=== PATIENT | male | born 1990 | race Caucasian/White ===

== ENCOUNTER 2018-10-23 16:22 | Emergency (ER) | payer MEDICAID, OTHER ==
[~2018-10-23] VITALS: Ht 175.3 cm; Wt 77.1 kg
[2018-10-23] MEDS ORDERED: ORPHENADRINE 60 MG/2 ML (NORFLEX) AMP IM ONE (16:45)
[2018-10-23] MEDS ORDERED: KETOROLAC 60 MG/2 ML VIAL IM ONE (16:45)
[2018-10-23] MEDS ORDERED: BUSPIRONE (16:49)
[2018-10-23] MEDS ORDERED: [UNRECOGNIZED DRUG - OTHER] (16:50)
[2018-10-23] MEDS ORDERED: SERTRALINE (16:50)
[2018-10-23] MEDS ORDERED: HYDROZINE (16:51)
[2018-10-23] MEDS ORDERED: OLANZAPINE (16:51)
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
--- NOTE | 2018-10-23 17:29 | Diagnostic Imaging Report ---
INDICATION: Left rib pain x1 year. PA chest and three views of left ribs do not show any displaced fractures. There are no osteolytic or osteoblastic lesions. Lungs are clear. There is no effusion or pneumothorax. IMPRESSION: Negative chest and left ribs. Dictated by: Dictated on workstation # [id number]
[2018-10-23 17:40] VITALS: BP 120/72
== END 2018-10-23 17:40 | disposition home or self-care (01) ==
LOC: ER 16:24
DX: M54.9 Dorsalgia, unspecified (principal); R07.81 Pleurodynia; F41.9 Anxiety disorder, unspecified; F31.9 Bipolar disorder, unspecified
CPT/HCPCS: 71101; 96372

== ENCOUNTER 2019-01-02 11:00 | Emergency (ER) | payer MEDICAID ==
[~2019-01-02] VITALS: Ht 170.2 cm; Wt 63.5 kg
[~2019-01-02 11:00] MED LIST: BUSPIRONE; FAMO-119 PO; HYDROZINE; OLANZAPINE; PRD20T PO; SERTRALINE; [UNRECOGNIZED DRUG - OTHER]
[2019-01-02] MEDS ORDERED: LORazepam 0.5 MG (ATIVAN) TABLET PO STA (11:09)
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
[2019-01-02] MEDS ORDERED: OLANZapine 5 MG ODT (ZyPREXA ZYDIS) PO ONE ×2 (11:15→11:30)
--- NOTE | 2019-01-02 11:34 | NUR ---
PT TO RADIOLOGY PER W/C W/ TECH X2
--- NOTE | 2019-01-02 11:48 | NUR ---
LUNCH PROVIDED FOR PT
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
--- NOTE | 2019-01-02 11:59 | Diagnostic Imaging Report ---
PROCEDURE: CT head without contrast. TECHNIQUE: Multiple contiguous axial images were obtained through the brain without the use of intravenous contrast. Auto Exposure Controls were utilized during the CT exam to meet ALARA standards for radiation dose reduction. INDICATION: Altered mental status. COMPARISON: 12/23/2017. FINDINGS: No hyperdense hemorrhage or space-occupying mass. No hydrocephalus or midline shift. Pedroza-white matter differentiation is preserved. No acute skull fracture. Orbits are normal in appearance. Paranasal sinuses and mastoid air cells are clear. IMPRESSION: No acute intracranial process by CT. Dictated by: Dictated on workstation # [id number]
--- NOTE | 2019-01-02 12:09 | NUR ---
PT RESTING QUIETLY, LIGHTS OFF IN ROOM
--- NOTE | 2019-01-02 12:46 | NUR ---
PT RESTING QUIETLY, NO DISTRESS OR DISCOMFORT NOTED
[2019-01-02 13:29] VITALS: BP 109/64
--- NOTE | 2019-01-02 13:29 | NUR ---
PT CONTINUES TO REST QUIETLY, NO DISTRESS OR DISCOMFORT NOTED.
[2019-01-02 14:55] VITALS: BP 104/65
--- NOTE | 2019-01-02 14:55 | NUR ---
PT CONTINUES TO REST W/O COMPLAINT. WARM BLANKET TO PT. NO DISTRESS OR DISCOMFORT NOTED
--- NOTE | 2019-01-02 16:35 | NUR ---
NO CHANGES AT THIS TIME. PT RESTING QUIETLY
[2019-01-02 16:37] VITALS: BP 119/62
[2019-01-02 17:45] VITALS: BP 109/60
--- NOTE | 2019-01-02 18:26 | NUR ---
MUPIRICIN DISPENSED TO PT BY MEJIA HAMILTON. INSTRUCTIONS DISCUSSED W/ PT ALSO BY MEJIA.
[2019-01-02] MEDS ORDERED: MUPIROCIN 2% OINT 22 GM (BACTROBAN) TUBE TOP SCH (21:00)
== END 2019-01-02 17:45 | disposition home or self-care (01) ==
LOC: EDUNIT# 11:00 → ER 11:04
DX: F15.90 Other stimulant use, unspecified, uncomplicated (principal); F22 Delusional disorders; F41.9 Anxiety disorder, unspecified; F31.9 Bipolar disorder, unspecified; Z77.22 Contact with and (suspected) exposure to environmental tobacco smoke (acute) (chronic); Z79.52 Long term (current) use of systemic steroids; Z59.0 Homelessness
CPT/HCPCS: 70450; 99283

== ENCOUNTER 2019-01-31 05:53 | Emergency (ER) | payer SELFPAY ==
[~2019-01-31] VITALS: Ht 177.8 cm; Wt 63.5 kg
[2019-01-31] MEDS ORDERED: IBUPROFEN 800 MG (MOTRIN) TAB PO ONE (06:15)
--- NOTE | 2019-01-31 07:03 | NUR ---
Report given to TUCKER Weaver to assume care of pt @ this time.
--- NOTE | 2019-01-31 07:10 | Diagnostic Imaging Report ---
INDICATION: Shortness of breath COMPARISON: 10/23/2018 FINDINGS: Frontal and lateral views the chest demonstrate clear lungs bilaterally. The heart size is normal. There is no pneumothorax. Osseous structures are normal. IMPRESSION: No acute findings. Normal chest. Dictated by: Dictated on workstation # [id number]
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
[2019-01-31 07:50] VITALS: BP 124/82
== END 2019-01-31 07:50 | disposition home or self-care (01) ==
LOC: EDUNIT# 05:53 → ER 05:55
DX: S20.211A Contusion of right front wall of thorax, initial encounter (principal); F41.9 Anxiety disorder, unspecified; F31.9 Bipolar disorder, unspecified; F17.210 Nicotine dependence, cigarettes, uncomplicated; Z79.52 Long term (current) use of systemic steroids; Y08.89XA Assault by other specified means, initial encounter
CPT/HCPCS: 71046

== ENCOUNTER 2020-06-21 18:52 | Inpatient (IN) | payer OTHER ==
[~2020-06-21] VITALS: Ht 175.2 cm; Wt 78.3 kg
[2020-06-21] MEDS ORDERED: morphine INJ 10 MG/ML 1ML (SYR OR VIAL) IVP STA ×2 (19:23→20:04)
[2020-06-21] MEDS ORDERED: HOLD METFORMIN - RECEIVED CONTRAST 20 ML VIAL IV SCH (19:30)
[2020-06-21] MEDS ORDERED: NS 100 ML (IVPB) BAG IV ONE (19:30)
[2020-06-21] MEDS ORDERED: CATHETER FLUSH 10 ML SYR IV PRN (19:30)
[2020-06-21] MEDS ORDERED: ONDANSETRON 4 MG/2 ML (SDV) Z0FRAN IVP ONE (19:30)
[2020-06-21] MEDS ORDERED: IOHEXOL 350 MG/ML 100 ML (OMNIPAQUE 350) VIAL IV ONE (19:30)
[2020-06-21] MEDS ORDERED: NS IV 1000 ML 1,000 ML IV SCH (19:30)
[2020-06-21 19:44] LABS: HEMOGLOBIN 13.7 G/DL (13.3-17.7); MEAN CORPUSCULAR HEMOGLOBIN 31 PG (25-34); WHITE BLOOD COUNT 14.4 10^3/uL (4.3-11.0)
[2020-06-21 19:45] LABS: BASOPHILS % (AUTO) 0 % (0-10); EOSINOPHILS % (AUTO) 0 % (0-10); HEMATOCRIT 40 % (40-54); LYMPHOCYTES % (AUTO) 13 % (12-44); MEAN CORPUSCULAR HGB CONC 35 G/DL (32-36); MEAN CORPUSCULAR VOLUME 90 FL (80-99); MEAN PLATELET VOLUME 9.9 FL (7.4-10.4); MONOCYTES % (AUTO) 9 % (0-12); NEUTROPHILS % (AUTO) 77 % (42-75); PLATELET COUNT 206 10^3/uL (130-400)
[2020-06-21 19:46] LABS: BASOPHILS # (AUTO) 0.1 10^3/uL (0.0-0.1); EOSINOPHILS # (AUTO) 0.1 10^3/uL (0.0-0.3); LYMPHOCYTES # (AUTO) 1.8 X 10^3 (1.0-4.0); MONOCYTES # (AUTO) 1.3 X 10^3 (0.0-1.0); NEUTROPHILS # (AUTO) 11.1 X 10^3 (1.8-7.8)
[2020-06-21 20:01] LABS: BUN/CREATININE RATIO 10; CARBON DIOXIDE 26 MMOL/L (21-32); CHLORIDE 97 MMOL/L (98-107); CREATININE SERUM 0.81 MG/DL (0.60-1.30); GFR ESTIMATED > 60; POTASSIUM 4.1 MMOL/L (3.6-5.0); SODIUM 135 MMOL/L (135-145)
[2020-06-21 20:02] LABS: ALANINE AMINOTRANSFERASE 34 U/L (0-55); ALBUMIN 4.1 GM/DL (3.2-4.5); ALKALINE PHOSPHATASE 121 U/L (40-136); BAND NEUTROPHILS 4 %; BILIRUBIN,TOTAL 0.7 MG/DL (0.1-1.0); CALCIUM 9.2 MG/DL (8.5-10.1); GLUCOSE 115 MG/DL (70-105); NEUTROPHILS % (MANUAL) 81 %; TOTAL PROTEIN 6.9 GM/DL (6.4-8.2)
[2020-06-21 20:03] LABS: BASOPHILS % (MANUAL) 0 %; EOSINOPHILS % (MANUAL) 2 %; LYMPHOCYTES % (MANUAL) 8 %; MONOCYTES % (MANUAL) 4 %; MYELOCYTES % 1 %
--- NOTE | 2020-06-21 20:12 | Diagnostic Imaging Report ---
PROCEDURE: CT pelvis with contrast. TECHNIQUE: Oral and intravenous contrast were administered with pelvic CT performed. Auto Exposure Controls were utilized during the CT exam to meet ALARA standards for radiation dose reduction. DATE: June 21, 2020. INDICATION: 29-year-old male, perirectal abscess for 4 days. COMPARISON: None. FINDINGS: There is a focal area of abnormal low-attenuation with at least a mild to moderately defined wall measuring 3.9 x 2.0 cm in axial extent and 4.5 cm in craniocaudal extent with adjacent inflammatory stranding. This is compatible with a perineal/perirectal abscess. The visualized portions of the intestinal tract are not distended. There is no identified free air in the pelvis. There is no additional identified drainable fluid collection. There is no free pelvic fluid. Urinary bladder is unremarkable in appearance. There is no identified abnormally enlarged lymph node in the pelvis meeting size criteria for adenopathy. There is no identified acute bony abnormality. IMPRESSION: 1. Findings compatible with abscess measuring 3.9 x 2.0 x 4.5 cm in size in the perineal/ perirectal region. Dictated by: Dictated on workstation # [id number]
--- NOTE | 2020-06-21 20:13 | ED Integumentary General ---
General Chief Complaint: Skin/Wound Problems Stated Complaint: ABCESS TO RT BUTTOCK Nursing Triage Note: Patient states that he noticed the spot about 4 days ago. Patient states that he has a hard area that is painful on the lower right buttock. Patient states that it is throbbing. Patient denies any drainage but does state that he is swollen into his perineum. Source: patient Exam Limitations: no limitations History of Present Illness Date Seen by Provider: Jun 21, 2020 Time Seen by Provider: 19:00 Initial Comments Patient is 29 YO male inmate who presents a R buttock abscess for the past 4 days. No fever, chills, n/v, or sweats. No abdominal pain, rectal pain or purulent drainage from rectum. No prior abscess. Timing/Duration: week Severity: moderate Location: none Allergies and Home Medications Allergies Coded Allergies: No Known Drug Allergies (Unverified , 10/23/18) Home Medications Famotidine 20 Mg Tablet, 20 MG PO BID Prescribed by: VANDANA HERNANDEZ on 08/01/172224 Prednisone 20 Mg Tab, 40 MG PO DAILY Prescribed by: VANDANA HERNANDEZ on 08/01/172224 Patient Home Medication List Home Medication List Reviewed: Yes Review of Systems Review of Systems Constitutional: see HPI EENTM: see HPI Respiratory: see HPI Cardiovascular: see HPI Gastrointestinal: see HPI Genitourinary: see HPI Musculoskeletal: see HPI Skin: see HPI Psychiatric/Neurological: See HPI Endocrine: See HPI Hematologic/Lymphatic: See HPI Past Bolevzj-Cxjoqm-Qljwor Hx Patient Social History Alcohol Use: Denies Use 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) Drug of Choice: MARIJUANA Smoking Status: Current Everyday Smoker Type Used: Cigarettes 2nd Hand Smoke Exposure: No Recent Foreign Travel: No Contact w/Someone Who Travel: No Recent Infectious Disease Expo: No Recent Hopitalizations: No Physical Abuse: No Sexual Abuse: No Mistreated: No Fear: No Immunizations Up To Date Tetanus Booster (TDap): Unknown Seasonal Allergies Seasonal Allergies: No Past Medical History Surgeries: No Respiratory: No Cardiac: No Neurological: No Reproductive Disorders: No Genitourinary: No Gastrointestinal: No Musculoskeletal: No Endocrine: No HEENT: No Cancer: No Psychosocial: Yes Depression Integumentary: No Blood Disorders: No Family Medical History COPD Physical Exam Vital Signs Vital Signs - First Documented 06/21/20 18:57 Temp 37.4 Pulse 90 Resp 18 B/P (MAP) 127/67 (87) Pulse Ox 98 O2 Delivery Room Air Capillary Refill : Less Than 3 Seconds General Appearance: no apparent distress HEENT: pharynx normal Cardiovascular: regular rate, rhythm Respiratory: lungs clear Gastrointestinal: non tender, soft Back: normal inspection Extremities: non-tender, normal inspection Skin: other (3 cm perirectal abscess with overlying cellulitis, no induration or drainage) Procedures/Interventions Suture Size: 4-0 Progress/Results/Core Measures Results/Orders Lab Results Laboratory Tests Test 06/21/20 19:31 Range/Units White Blood Count 14.4 H 4.3-11.0 10^3/uL Red Blood Count 4.41 4.35-5.85 10^6/uL Hemoglobin 13.7 13.3-17.7 G/DL Hematocrit 40 40-54 % Mean Corpuscular Volume 90 80-99 FL Mean Corpuscular Hemoglobin 31 25-34 PG Mean Corpuscular Hemoglobin Concent 35 32-36 G/DL Red Cell Distribution Width 11.9 10.0-14.5 % Platelet Count 206 130-400 10^3/uL Mean Platelet Volume 9.9 7.4-10.4 FL Immature Granulocyte % (Auto) 1 % Neutrophils (%) (Auto) 77 H 42-75 % Lymphocytes (%) (Auto) 13 12-44 % Monocytes (%) (Auto) 9 0-12 % Eosinophils (%) (Auto) 0 0-10 % Basophils (%) (Auto) 0 0-10 % Neutrophils # (Auto) 11.1 H 1.8-7.8 X 10^3 Lymphocytes # (Auto) 1.8 1.0-4.0 X 10^3 Monocytes # (Auto) 1.3 H 0.0-1.0 X 10^3 Eosinophils # (Auto) 0.1 0.0-0.3 10^3/uL Basophils # (Auto) 0.1 0.0-0.1 10^3/uL Immature Granulocyte # (Auto) 0.1 0.0-0.1 10^3/uL Neutrophils % (Manual) 81 % Lymphocytes % (Manual) 8 % Monocytes % (Manual) 4 % Eosinophils % (Manual) 2 % Basophils % (Manual) 0 % Myelocytes % 1 % Band Neutrophils 4 % Sodium Level 135 135-145 MMOL/L Potassium Level 4.1 3.6-5.0 MMOL/L Chloride Level 97 L 98-107 MMOL/L Carbon Dioxide Level 26 21-32 MMOL/L Anion Gap 12 5-14 MMOL/L Blood Urea Nitrogen 8 7-18 MG/DL Creatinine 0.81 0.60-1.30 MG/DL Estimat Glomerular Filtration Rate > 60 BUN/Creatinine Ratio 10 Glucose Level 115 H 70-105 MG/DL Lactic Acid Level 1.24 0.50-2.00 MMOL/L Calcium Level 9.2 8.5-10.1 MG/DL Corrected Calcium 9.1 8.5-10.1 MG/DL Total Bilirubin 0.7 0.1-1.0 MG/DL Aspartate Amino Transf (AST/SGOT) 21 5-34 U/L Alanine Aminotransferase (ALT/SGPT) 34 0-55 U/L Alkaline Phosphatase 121 40-136 U/L C-Reactive Protein 5.36 H <0.50 MG/DL Total Protein 6.9 6.4-8.2 GM/DL Albumin 4.1 3.2-4.5 GM/DL My Orders Orders - EDIE DEE DO Cbc With Automated Diff (06/21/20 19:23) Comprehensive Metabolic Panel (06/21/20 19:23) Crp Fs (06/21/20 19:23) Blood Culture (06/21/20 19:23) Morphine Injection (Morphine Injection (06/21/20 19:23) Ondansetron Injection (Zofran Injectio (06/21/20 19:30) Lactic Acid Analyzer (06/21/20 19:23) Ns Iv 1000 Ml (Sodium Chloride 0.9%) (06/21/20 19:30) Ct Pelvis W (06/21/20 19:23) Iohexol Injection (Omnipaque 350 Mg/Ml 1 (06/21/20 19:30) Received Contrast (Hold Metformin- Contr (06/21/20 19:30) Sodium Chloride Flush (Catheter Flush Sy (06/21/20 19:30) Ns (Ivpb) (Sodium Chloride 0.9% Ivpb Bag (06/21/20 19:30) Blood Culture (06/21/20 19:31) Manual Differential (06/21/20 19:31) Ed Iv/Invasive Line Start (06/21/20 20:00) Morphine Injection (Morphine Injection (06/21/20 20:04) Medications Given in ED Current Medications Medications Dose Ordered Sig/Isreal Route Start Time Stop Time Status Last Admin Dose Admin Ondansetron HCl 4 mg ONCE ONCE IVP 06/21/20 19:30 06/21/20 19:31 DC 06/21/20 19:53 4 MG Vital Signs/I&O 06/21/20 18:57 Temp 37.4 Pulse 90 Resp 18 B/P (MAP) 127/67 (87) Pulse Ox 98 O2 Delivery Room Air Blood Pressure Mean: 87 Departure Communication (Admissions) CT = pelvis: 3 x 4 x 2 cm perirectal abscess Perirectal abscess with overlying cellulitis will require incision and drainage by general surgeon in the operating room. Patient given IV fluids and pain medication. Dr. Vargas excepts to [facility]. Impression Primary Impression: Perirectal abscess Disposition: ADMITTED INPATIENT Condition: Stable Admissions Decision to Admit Reason: Admit from ER (General) Decision to Admit/Date: Jun 21, 2020 Time/Decision to Admit Time: 20:00 (Dr. Vargas) Transfer Method of Transfer: EMS Departure-Patient Inst. Referrals: [facility] (PCP/Family) Primary Care Physician EDIE DEE DO Jun 21, 2020 20:13
[2020-06-21] MEDS ORDERED: PIPERACILLIN SODIUM/TAZOBACTAM 4.5 GM in NS (IVPB) 100 ML IV ONE (21:00)
[2020-06-21 22:40] VITALS: BP 118/68
--- NOTE | 2020-06-21 22:40 | NUR ---
SHRUTHI PAYALBENJAMIN admitted to room 413-1, with an admitting diagnosis of NEGAR-RECTAL ABSCESS, on 06/21/20 from [facility] via [facility], accompanied by [facility]. SHRUTHI FERNANDEZ introduced to surroundings, call light, bed controls, phone, TV, temperature control, lights, meal times, smoking policy, visitor policy, side rail policy, bathrooms and showers. Patient Rights given to patient in the handbook. SHRUTHI FERNANDEZ verbalizes understanding that [facility] is not responsible for the loss or damage to any personal effects or valuables that are kept in the patients possession during their hospitalization.
[2020-06-21 22:49] VITALS: BP 103/64
[2020-06-21 22:50] VITALS: BP 103/64
[2020-06-21] MEDS ORDERED: ONDANSETRON 4 MG/2 ML (SDV) Z0FRAN IVP PRN (23:15)
[2020-06-21] MEDS: D5 1/2 NS 1000 ML IV SOLUTION 1,000 ML IV SCH (23:28)
[2020-06-21 23:52] VITALS: BP 103/64
[2020-06-22] VITALS (13 sets, daily range): BP systolic 86–106; BP diastolic 37–62
[2020-06-22] MEDS ORDERED: RT-ALBUTEROL SULF 2.5 MG/3 ML PRE-MIX VIAL INH PRN
[2020-06-22] MEDS: morphine INJ 4 MG/ML 1 ML (VIAL/SYRINGE) IVP PRN ×3 (01:45→20:53)
[2020-06-22] MEDS ORDERED: PIPERACILLIN/TAZO 4.5 GM VIAL (ZOSYN) IV ONE (03:02)
[2020-06-22] MEDS ORDERED: NS (IVPB) 100 ML ONE (03:02)
[2020-06-22] MEDS: PIPERACILLIN/TAZO 4.5 GM/NS 100 ML IV SCH ×6 (03:20→20:52)
--- NOTE | 2020-06-22 06:09 | NUR ---
DR. TONEY NOTIFIED OF CONSULT.
[2020-06-22] MEDS: D5 1/2 NS 1000 ML IV SOLUTION 1,000 ML IV SCH ×3 (06:15→20:53)
[2020-06-22] MEDS ORDERED: LACTATED RINGERS 1,000 ML IV ONE (08:10)
[2020-06-22] MEDS ORDERED: LACTATED RINGERS 1,000 ML IV SCH (08:15)
--- NOTE | 2020-06-22 08:18 | NUR ---
BP 86/37, DR COULTER NOTIFIED, LR FLUID BOLUS TIMES ONE LITER ORDERED
--- NOTE | 2020-06-22 09:15 | NUR ---
SPOKE WITH THE PT TO COMPLETE THE MED REC PT DENIES TAKING ANY PRESCRIPTION OR OTC MEDS A DEPUTY FROM [facility] WAS HERE WITH THE PT AND WAS NOT SURE WHAT PHARMACY THE RESIDENTIAL USES. I CALLED TAYLOR THE NURSE AT THE FACILITY AND WAS TOLD THEY PREFER TO GET A PAPER PRESCRIPTION SINCE THEY HAVE SOME MEDICATIONS ALREADY THERE OR IF THEY NEED SOMETHING ELSE THEY USE A PHARMACY DELIVERY SERVICE
[2020-06-22] MEDS ORDERED: KETOROLAC 15 MG/ML VIAL IVP ONE (09:45)
--- NOTE | 2020-06-22 10:13 | History & Physical-Hospitalist ---
History of Present Illness HPI/Chief Complaint Pt is a 29yoCM with no known PMH who presented to the ER from the [facility] due to a perirectal abscess. he reports the he developed this abscess roughly 4 days ago. He has not had a fever at the long term but developed one here. His biggest complaint is pain. He has no drainage from the site. He states that he's unable to sit due to the pain. Source: patient Date Seen 06/22/20 Time Seen by a Provider: 10:08 Attending Physician Karolina Vargas MD PCP Center/[facility] [place] Referring Physician Date of Admission Jun 21, 2020 at 22:36 Home Medications & Allergies Home Medications Reviewed patient Home Medication Reconciliation performed by pharmacy medication reconciliations boiler technician and/or nursing. Patients Allergies have been reviewed. 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) Drug of Choice: MARIJUANA Smoking Status: Current Everyday Smoker Type Used: Cigarettes 2nd Hand Smoke Exposure: No Recent Foreign Travel: No Contact w/other who traveled: No Recent Hopitalizations: No Recent Infectious Disease Expo: No Immunizations Up To Date Tetanus Booster (TDap): Unknown Seasonal Allergies Seasonal Allergies: No Past Medical History Reproductive: No Psychosocial: Depression History of Blood Disorders: No Family History Reviewed Nursing Family Hx FH: COPD (chronic obstructive pulmonary disease) 19 MOTHER COPD Review of Systems Constitutional: fever, malaise EENTM: no symptoms reported Respiratory: No cough, No short of breath Cardiovascular: No chest pain, No palpitations Gastrointestinal: see HPI; No abdominal pain, No nausea, No vomiting Genitourinary: no symptoms reported Musculoskeletal: no symptoms reported Skin: see HPI Psychiatric/Neurological: No Symptoms Reported Physical Exam Physical Exam Vital Signs Vital Signs - First Documented 06/21/20 06/21/20 06/22/20 18:57 23:52 11:58 Temp 37.4 Pulse 90 Resp 18 B/P (MAP) 127/67 (87) Pulse Ox 98 O2 Delivery Room Air O2 Flow Rate 10 FiO2 21 Capillary Refill : Less Than 3 Seconds Height, Weight, BMI Height: 5'10.00" Weight: 140lbs. oz. 63.755197fw; 23.78 BMI Method:Estimated General Appearance: No Apparent Distress, WD/WN HEENT: PERRL/EOMI, Moist Mucous Membranes; No Scleral Icterus (L), No Scleral Icterus (R) Neck: Normal Inspection, Supple Respiratory: Lungs Clear, No Accessory Muscle Use, No Respiratory Distress Cardiovascular: Regular Rate, Rhythm, No Murmur Gastrointestinal: Normal Bowel Sounds, Non Tender, Soft Rectal: Other (~3cm abscess apparent on right inner buttock) Extremity: Normal Capillary Refill, No Calf Tenderness, No Pedal Edema, Other (handcuffed to bed) Neurologic/Psychiatric: Alert, Oriented x3, Normal Mood/Affect Skin: Tattoos/Piercings Results Results/Procedures Labs Laboratory Tests 06/21/20 19:31 Patient resulted labs reviewed. Imaging: Reviewed Imaging Report [facility] [place] [place] NAME: SHRUTHI FERNANDEZ [facility] REC#: [id number] PT STATUS: REG ER : 1990 PHYSICIAN: EDIE DEE DO ADMIT DATE: 06/21/20/ER FS Signed Date of Exam:06/21/20 CT PELVIS W PROCEDURE: CT pelvis with contrast. TECHNIQUE: Oral and intravenous contrast were administered with pelvic CT performed. Auto Exposure Controls were utilized during the CT exam to meet ALARA standards for radiation dose reduction. DATE: June 21, 2020. INDICATION: 29-year-old male, perirectal abscess for 4 days. COMPARISON: None. FINDINGS: There is a focal area of abnormal low-attenuation with at least a mild to moderately defined wall measuring 3.9 x 2.0 cm in axial extent and 4.5 cm in craniocaudal extent with adjacent inflammatory stranding. This is compatible with a perineal/perirectal abscess. The visualized portions of the intestinal tract are not distended. There is no identified free air in the pelvis. There is no additional identified drainable fluid collection. There is no free pelvic fluid. Urinary bladder is unremarkable in appearance. There is no identified abnormally enlarged lymph node in the pelvis meeting size criteria for adenopathy. There is no identified acute bony abnormality. IMPRESSION: 1. Findings compatible with abscess measuring 3.9 x 2.0 x 4.5 cm in size in the perineal/ perirectal region. Dictated by: Dictated on workstation # [id number] Dict: 06/21/202001 Trans: 06/21/202138 [facility] [id number] Interpreted by: SHEMAR GREEN MD Electronically signed by: SHEMAR GREEN MD 06/21/202138 Assessment/Plan Admission Diagnosis Sepsis Perirectal abscess Admission Status: Inpatient Order (span 2 midnights) Reason for Inpatient Admission: see below Assessment and Plan Sepsis Perirectal abscess leukocytosis with fever and perirectal abscess- present on admission Continue on IV abx Surgery consulted, appreciate assistance Plan for OR today for I&D- await cultures Will need to be in the hospital likely through the weekend for IV abx Continue pain management. Diagnosis/Problems Diagnosis/Problems (1) Sepsis Status: Acute Qualifiers: Sepsis type: sepsis due to unspecified organism Sepsis acute organ dysfu nction status: without acute organ dysfunction Qualified Codes: A41.9 - Sepsis, unspecified organism (2) Sandra-rectal abscess Status: Acute (3) Inmate in correctional facility Clinical Quality Measures DVT/VTE Risk/Contraindication: Risk Factor Score Per Nursin RFS Level Per Nursing on Admit: 2=Moderate LILIAM COULTER MD Jun 22, 2020 10:13
--- NOTE | 2020-06-22 10:23 | Consultation - Surgery ---
History of Present Illness History of Present Illness Patient Consulted On(destini/time) 06/22/20 10:16 Time Seen by Provider: 09:41 History of Present Illness Surgery asked to consult regarding sandra-rectal abscess. HPI per ED: Patient states that he noticed the spot about 4 days ago. Patient states that he has a hard area that is painful on the lower right buttock. Patient states that it is throbbing. Patient denies any drainage but does state that he is swollen into his perineum. Patient is 29 YO male inmate who presents a R buttock abscess for the past 4 days. No fever, chills, n/v, or sweats. No abdominal pain, rectal pain or purulent drainage from rectum. No prior abscess. When I saw him this am he describes pain as 6 out of 10, nothing makes it better and sitting makes pain worse. Denies any trauma to the area. 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) Drug of Choice: MARIJUANA Smoking Status: Current Everyday Smoker Type Used: Cigarettes 2nd Hand Smoke Exposure: No Recent Foreign Travel: No Contact w/Someone Who Travel: No Recent Infectious Disease Expo: No Recent Hopitalizations: No Immunizations Up To Date Tetanus Booster (TDap): Unknown Seasonal Allergies Seasonal Allergies: No Surgeries History of Surgeries: No Respiratory History of Respiratory Disorde: No Cardiovascular History of Cardiac Disorders: No Neurological History of Neurological Disord: No Reproductive System Hx Reproductive Disorders: No Genitourinary History of Genitourinary Disor: No Gastrointestinal History of Gastrointestinal Di: No Musculoskeletal History of Musculoskeletal Dis: No Endocrine History of Endocrine Disorders: No HEENT History of HEENT Disorders: No Cancer History of Cancer: No Psychosocial History of Psychiatric Problem: Yes Behavioral Health Disorders: Depression Integumentary History of Skin or Integumenta: No Blood Transfusions History of Blood Disorders: No Family Medical History Significant Family History: COPD Family Medial History: FH: COPD (chronic obstructive pulmonary disease) 19 MOTHER Review of Systems-General Constitutional: chills, diaphoresis, malaise, weakness EENTM: No blurred vision, No double vision, No mouth pain, No mouth swelling, No epistaxis Respiratory: No cough, No dyspnea on exertion, No hemoptysis, No short of breath Cardiovascular: No chest pain, No palpitations Gastrointestinal: No abdominal pain, No nausea, No vomiting Genitourinary: No dysuria, No frequency, No hematuria Musculoskeletal: No joint pain, No joint swelling Skin: No change in color, No change in hair/nails Psychiatric/Neurological: Denies Anxiety, Denies Depressed, Denies Seizure, Denies Tremors Other pt denies any hx of abnormal bleeding or bruising Physical Exam-General Problems Physical Exam Vital Signs Vital Signs - First Documented 06/21/20 06/21/20 18:57 23:52 Temp 37.4 Pulse 90 Resp 18 B/P (MAP) 127/67 (87) Pulse Ox 98 O2 Delivery Room Air FiO2 21 Capillary Refill : Less Than 3 Seconds General Appearance: WD/WN, no apparent distress Eyes: Bilateral Eye PERRL, Bilateral Eye EOMI HEENT: pharynx normal; No scleral icterus (R), No scleral icterus (L) Neck: non-tender, supple Respiratory: chest non-tender, lungs clear, normal breath sounds, no respiratory distress, no accessory muscle use Cardiovascular: regular rate, rhythm, no murmur Gastrointestinal: normal bowel sounds, non tender, soft Rectal: other (large area of erythema, very tender right sandra-rectal area, measuring appx 8x 15 cm) Back: no CVA tenderness, no vertebral tenderness Extremities: non-tender, normal inspection, no pedal edema, no calf tenderness, normal capillary refill Neurologic/Psychiatric: toe trimmer II-XII nml as tested, no motor/sensory deficits, alert, normal mood/affect, oriented x 3 Skin: normal color, warm/dry Lymphatic: no adenopathy (neck, axilla), inguinal node tender (R) Data Review Labs Laboratory Tests 06/21/20 19:31: White Blood Count 14.4H, Red Blood Count 4.41, Hemoglobin 13.7, Hematocrit 40, Mean Corpuscular Volume 90, Mean Corpuscular Hemoglobin 31, Mean Corpuscular Hemoglobin Concent 35, Red Cell Distribution Width 11.9, Platelet Count 206, Mean Platelet Volume 9.9, Immature Granulocyte % (Auto) 1, Neutrophils (%) (Auto) 77H, Lymphocytes (%) (Auto) 13, Monocytes (%) (Auto) 9, Eosinophils (%) (Auto) 0, Basophils (%) (Auto) 0, Neutrophils # (Auto) 11.1H, Lymphocytes # (Auto) 1.8, Monocytes # (Auto) 1.3H, Eosinophils # (Auto) 0.1, Basophils # (Auto) 0.1, Immature Granulocyte # (Auto) 0.1, Neutrophils % (Manual) 81, Lymphocytes % (Manual) 8, Monocytes % (Manual) 4, Eosinophils % (Manual) 2, Basophils % (Manual) 0, Myelocytes % 1, Band Neutrophils 4, Sodium Level 135, Potassium Level 4.1, Chloride Level 97L, Carbon Dioxide Level 26, Anion Gap 12, Blood Urea Nitrogen 8, Creatinine 0.81, Estimat Glomerular Filtration Rate > 60, BUN/Creatinine Ratio 10, Glucose Level 115H, Lactic Acid Level 1.24, Calcium Level 9.2, Corrected Calcium 9.1, Total Bilirubin 0.7, Aspartate Amino Transf (AST/SGOT) 21, Alanine Aminotransferase (ALT/SGPT) 34, Alkaline Phosphatase 121, C-Reactive Protein 5.36H, Total Protein 6.9, Albumin 4.1 Assessment/Plan Assessment/Plan Assessment/Plan Sandra-rectal Abscess Plan is IV fluids, IV ABX, NPO and to OR for Incision and Drainage with possible debridement and packing. Will get consent and alert OR. Discussed risks and complications with pt; not limited to pain, bleeding, infection, scar. All questions answered to pt's satisfaction. Clinical Quality Measures DVT/VTE Risk/Contraindication: Risk Factor Score Per Nursin RFS Level Per Nursing on Admit: 2=Moderate BRII POLK DO Jun 22, 2020 10:23
[2020-06-22] MEDS ORDERED: LIDOCAINE PF 2% 5 ML (XYLOCAINE) VIAL ONE (10:54)
[2020-06-22] MEDS ORDERED: fentaNYL INJECTION 100 MCG/2 ML AMP ONE (10:54)
[2020-06-22] MEDS ORDERED: MIDAZOLAM 2 MG/2 ML (VERSED) VIAL ONE (10:54)
[2020-06-22] MEDS ORDERED: SEVOFLURANE (ULTANE) 15 ML INHAL SOLN ONE (10:54)
[2020-06-22] MEDS ORDERED: ONDANSETRON 4 MG/2 ML (SDV) Z0FRAN ONE (10:54)
[2020-06-22] MEDS ORDERED: proPOfol 200 MG/20 ML (DIPRIVAN) VIAL IV ONE (10:54)
[2020-06-22] MEDS ORDERED: BUP/EPI 0.25% 1:200,000 (MARCAINE) 30 ML VIAL ONE (10:59)
--- NOTE | 2020-06-22 11:59 | Progress Note-Post Operative ---
Post-Operative Progess Note Surgeon (s)/Follow Up Specialist (s) Surgeon BRII POLK DO Follow Up Specialist: none Pre-Operative Diagnosis Sandra-rectal abscess Post-Operative Diagnosis same Procedure & Operative Findings Date of Procedure 06/22/20 Procedure Performed/Findings I&D with debridement and packing Anesthesia Type LMA Estimated Blood Loss Estimated blood loss (mL): minimal Specimens/Packing Specimens Removed abscess culture BRII POLK DO Jun 22, 2020 11:59
[2020-06-22] MEDS ORDERED: morphine INJ 10 MG/ML 1ML (SYR OR VIAL) IVP ONE (12:15)
[2020-06-22] MEDS ORDERED: ONDANSETRON 4 MG/2 ML (SDV) Z0FRAN IVP PRN (12:15)
[2020-06-22] MEDS ORDERED: morphine INJ 10 MG/ML 1ML (SYR OR VIAL) ONE (12:25)
--- NOTE | 2020-06-22 12:28 | Anesthesia-General Post-Op ---
General Patient Condition Mental Status/LOC: Same as Preop Cardiovascular: Satisfactory Nausea/Vomiting: Absent Respiratory: Satisfactory Pain: Controlled Complications: Absent Post Op Complications Complications None Follow Up Care/Instructions Patient Instructions None needed. Anesthesia/Patient Condition Patient Condition Patient is doing well, no complaints, stable vital signs, no apparent adverse anesthesia problems. ADRIANA MORENO DO Jun 22, 2020 12:28
--- NOTE | 2020-06-22 13:00 | NUR ---
RETURNED FROM SURGERY, REPORT FROM GUANAKITO CEBALLOS, PATIENT ALERT, DRESSING INTACT TO ABSCESS. IV SITE WITHOUT REDNESS OR SWELLING, CALL LIGHT WITHIN REACH. SECURITY AT BEDSIDE.
--- NOTE | 2020-06-22 13:07 | CONSULTATION REPORT ---
DATE OF SERVICE: ATTENDING PHYSICIAN: Dr. Vargas. HISTORY OF PRESENT ILLNESS: The patient is a 29-year-old male, who presented to the Emergency Department from [facility]. He reports that about four days ago, he noticed a spot of the right lower buttock and stated this was hard and painful. He reports that this was throbbing, but denies any drainage. He reports that over the course days, this has become gradually worse with increasing pain as well as swelling. He denied any drainage as well as no fever or chills. He also denies any nausea or vomiting. He presented to the Emergency Department where he was found to have a white blood cell count of 14.[address] a CT of the pelvis, which did show a 3 x 4 x 2 cm perirectal abscess with overlying cellulitis. PAST MEDICAL HISTORY: History of drug abuse. PAST SURGICAL HISTORY: None. ALLERGIES: No known drug allergies. MEDICATIONS: None. SOCIAL HISTORY: Positive for smoke for 15 years. History of meth use as well as marijuana. Rare for alcohol. FAMILY HISTORY: Noncontributory. VITAL SIGNS: Temperature 38.7 degrees Celsius, pulse 91, respirations 16, blood pressure 97/55, pulse ox 94% on room air. REVIEW OF SYSTEMS: A well-nourished male in no acute distress. He is not experiencing any shortness of breath or difficulty breathing. No chest pain, palpitations or diaphoresis. No nausea, vomiting or abdominal pain. No diarrhea or constipation. No red blood per rectum. No dark tarry stools. He did have a slightly elevated temperature this morning. He does report pain and swelling of the right medial buttocks. All other review of systems negative. PHYSICAL EXAMINATION: CHEST: Clear. Good breath sounds bilaterally. HEART: Regular, no murmurs. EXTREMITIES: No lower extremity edema. Negative Homans sign. HEENT: No scleral icterus. NECK: No cervical lymphadenopathy. ABDOMEN: Soft, nontender, nondistended. SKIN: There is an area of cellulitis with redness and erythema of the right medial buttocks, which is firm and tender to palpation. This does extend down towards the perineum. There is no induration or active drainage noted. NEUROLOGIC: Awake, alert and oriented x3. ASSESSMENT AND PLAN: A 29-year-old male with a perirectal abscess with overlying cellulitis. At this time, we will admit him and give him IV fluids as well as pain and nausea medication and IV antibiotics. We will have him remain n.p.o. and he will need to undergo an incision and drainage in the operating room on this admission. Job ID: [id number] DocumentID: [id number] Dictated Date: 06/22/2020 09:47:05 Auto Service Dispatcher Date: 06/22/2020 13:06:38 Dictated By: KIMMY CHENG APRN
--- NOTE | 2020-06-22 14:35 | NUR ---
Pt is listed as [facility] but has not been active. Last Waxer provided prayer and blessing.
--- NOTE | 2020-06-22 15:38 | NUR ---
CM/SS visited with patient for discharge planning. Plan: Patient will return to [facility]. CM/SS introduced name and role at hospital. Will follow up with patient on Thursday.
--- NOTE | 2020-06-22 18:06 | OPERATIVE REPORT ---
DATE OF SERVICE: PREOPERATIVE DIAGNOSIS: Perirectal abscess. POSTOPERATIVE DIAGNOSIS: Perirectal abscess. PROCEDURE: Incision and drainage with debridement and packing of perirectal abscess. SURGEON: Eric Chou DO HEEL FINISHER: None. ANESTHESIA: LMA. SPECIMEN: Abscess culture. BLOOD LOSS: Minimal. FLUIDS: Per anesthesia. POSTOPERATIVE CONDITION: Stable. INDICATION FOR PROCEDURE: The patient is a 29-year-old male who has a perirectal abscess, right buttock, needed to get this drained. FINDINGS: The patient had a right perirectal abscess with about 20 mL of abscess in this area cultured and sent to pathology. PROCEDURE NOTE: After informed consent was obtained, the patient was brought to the operating room, placed on the operating table in right lateral decubitus position. He was sterilely prepped and draped in normal fashion. Local lidocaine was used to infiltrate over this erythematous area, had already had a small hole with some purulent drainage. We cultured this and sent to pathology. I then used a #11 blade to make a stab incision and opened this area, measured approximately 3.5 to 4 cm long incision, immediately got out about 20 mL of purulent fluid, then broke up any loculations. This did not extend towards the rectum, did extend a little further laterally on the buttock cheek. Debrided with a 4x4. At this point, I then copiously irrigated with normal saline. Hemostasis obtained using Bovie electrocautery and elected to pack with half inch iodoform packing, packed 1/2 of the bottle. Area was cleaned and dried, then placed a dressing. The patient tolerated the procedure and transferred to recovery room in stable condition. Sponge, instrument and needle count correct at the end of the case. Job ID: [id number] DocumentID: [id number] Dictated Date: 06/22/2020 11:58:43 Stretcher Leveler Operator Date: 06/22/2020 18:06:14 Dictated By: ERIC CHOU DO [facility]
[2020-06-22] MEDS ORDERED: ANTACID SUSP 30 ML UDC (MYLANTA) PO PRN (20:45)
[2020-06-22] MEDS ORDERED: MILK OF MAGNESIA 400 MG/5 ML 30 ML UDC PO PRN (20:45)
[2020-06-22] MEDS ORDERED: BENZONATATE 100 MG (TESSALON) CAPSULE PO PRN (20:45)
[2020-06-22] MEDS ORDERED: MELATONIN 3 MG TABLET PO PRN (20:45)
[2020-06-23] MEDS: morphine INJ 4 MG/ML 1 ML (VIAL/SYRINGE) IVP PRN ×2 (03:06→10:01)
[2020-06-23] MEDS: D5 1/2 NS 1000 ML IV SOLUTION 1,000 ML IV SCH ×4 (03:06→22:20)
[2020-06-23] MEDS: PIPERACILLIN/TAZO 4.5 GM/NS 100 ML IV SCH ×2 (03:06)
[2020-06-23 03:08] VITALS: BP 99/53
[2020-06-23 07:38] VITALS: BP_SYST 94; BP_DIAS 45; BP_DIAS 75
[2020-06-23] MEDS: TRIM/SULFAMETH 160/800 (SEPTRA DS) TAB PO SCH ×2 (08:11→18:05)
[2020-06-23] MEDS: BACITRACIN OINTMENT 28 GM TUBE TOP SCH ×2 (08:27→20:02)
[2020-06-23] MEDS: HYDROcodone/APAP 10 MG/325 MG (LORTAB) TAB PO PRN ×4 (08:51→22:19)
--- NOTE | 2020-06-23 10:00 | NUR ---
DRESSING CHANGED TO RIGHT PERINEAL ABBESS. MOD. AMT REDDISH DRAINAGE NOTED. FLUSHED WITH SALINE THEN PACKED (APPROX. 3 CM DEEP) WITH NU-GAUZE THEN 4X4'S AND ABD APPLIED TO AREA. NO REDNESS AT SITE, SL. FIRMNESS AROUND EDGES OF WOUND.
--- NOTE | 2020-06-23 11:10 | Progress Note - Surgery ---
Subjective Time Seen by a Provider: 10:01 Subjective/Events-last exam Pt seen and examined, main complaint is of pain. Tolerating diet. Review of Systems Pulmonary: No Dyspnea, No Cough Cardiovascular: No: Chest Pain, Palpitations Gastrointestinal: No: Nausea, Vomiting, Abdominal Pain Focused Exam Lactate Level 06/21/20 19:31: Lactic Acid Level 1.24 Objective Exam Vital Signs Date Time Temp Pulse Resp B/P (MAP) Pulse Ox O2 Delivery O2 Flow Rate FiO2 06/23/20 08:00 95 Room Air 06/23/20 07:38 36.6 56 16 94/75 (81) 96 Room Air 06/23/20 03:08 36.2 70 16 99/53 (68) 96 Room Air 06/22/20 23:40 37.0 68 19 98/52 (67) 97 Room Air 06/22/20 20:17 36.6 72 18 106/56 (73) 96 Room Air 06/22/20 20:00 Room Air 06/22/20 19:24 Room Air 06/22/20 16:15 36.4 74 20 96/45 (62) 95 Room Air 06/22/20 13:00 Room Air 06/22/20 13:00 36.2 77 16 98/54 (69) 94 Room Air 06/22/20 12:48 36.5 12 103/57 (72) 95 Room Air 06/22/20 12:45 Room Air 06/22/20 12:38 16 105/62 (76) 97 OxyMask 10 06/22/20 12:30 OxyMask 10 06/22/20 12:28 18 101/58 (72) 100 OxyMask 10 06/22/20 12:18 17 90/60 (70) 100 OxyMask 10 06/22/20 12:15 OxyMask 10 06/22/20 12:08 18 97/48 (64) 96 OxyMask 10 06/22/20 11:58 36.8 16 95/48 (64) 97 OxyMask 10 06/22/20 11:58 OxyMask 10 I & O 06/23/20 07:00 Intake Total 6060 ml Balance 6060 ml Capillary Refill : Less Than 3 Seconds General Appearance: No Apparent Distress, WD/WN HEENT: No Scleral Icterus (L), No Scleral Icterus (R) Respiratory: Lungs Clear, Normal Breath Sounds, No Accessory Muscle Use, No Respiratory Distress Cardiovascular: Regular Rate, Rhythm, No Murmur Gastrointestinal: other (gracie-rectal area no erythema, minimal serosanguinous drainage) Extremity: Other (handcuffed to bed) Skin: Tattoos/Piercings Results Lab Microbiology 06/22/20 Gram Stain - Final, Resulted 06/22/20 Anaerobic Culture, Resulted Pending 06/22/20 Surgical Culture - Preliminary, Resulted Staphylococcus aureus 06/22/20 Fungal Culture 1, Resulted Pending 06/22/20 MRSA Screen - Final, Complete 06/21/20 Blood Culture - Preliminary, Resulted No growth Assessment/Plan Assessment/Plan Assessment/Plan S/P I&D of Gracie-rectal Abscess Cultures have come back MRSA; ABX changed and switched to PO. Plan change packing today and tomorrow and can send back to skilled nursing because nurse will be in on Thursday. Continue pain control. Clinical Quality Measures DVT/VTE Risk/Contraindication: Risk Factor Score Per Nursin RFS Level Per Nursing on Admit: 2=Moderate BRII POLK DO Jun 23, 2020 11:10
[2020-06-23 11:12] VITALS: BP 94/42
--- NOTE | 2020-06-23 11:59 | Progress Note - Hospitalist ---
Subjective HPI/CC On Admission Date Seen by Provider: Jun 23, 2020 Time Seen by Provider: 11:57 Pt is a 29yoCM with no known PMH who [facility]. Subjective/Events-last exam Pt reports feeling better today. Pain improving. Focused Exam Lactate Level 06/21/20 19:31: Lactic Acid Level 1.24 Objective Exam Vital Signs Vital Signs Date Time Temp Pulse Resp B/P (MAP) Pulse Ox O2 Delivery O2 Flow Rate FiO2 06/23/20 11:12 36.4 62 16 94/42 (59) 96 Room Air 06/22/20 12:38 10 06/21/20 23:52 21 Capillary Refill : Less Than 3 Seconds General Appearance: No Apparent Distress, WD/WN Respiratory: Lungs Clear, No Respiratory Distress Cardiovascular: Regular Rate, Rhythm, No Murmur Neurologic/Psychiatric: Alert, Oriented x3 Results/Procedures Lab Patient resulted labs reviewed. Imaging: Reviewed Imaging Report Assessment/Plan Assessment and Plan Assess & Plan/Chief Complaint Sepsis Perirectal abscess POD #1 I&D Wound culture growing MRSA Switch to Bactrim Surgery consulted, appreciate assistance Continue pain management Will likely be able to DC tomorrow after wound packed Diagnosis/Problems Diagnosis/Problems (1) Sepsis Status: Acute Qualifiers: Sepsis type: sepsis due to unspecified organism Sepsis acute organ dysfunction status: without acute organ dysfunction Qualified Codes: A41.9 - Sepsis, unspecified organism (2) Sandra-rectal abscess Status: Acute Clinical Quality Measures DVT/VTE Risk/Contraindication: Risk Factor Score Per Nursin RFS Level Per Nursing on Admit: 2=Moderate LILIAM COULTER MD Jun 23, 2020 11:59
[2020-06-23] MEDS: DOCUSATE SODIUM 100 MG (COLACE) CAP PO SCH ×3 (12:00→20:02)
[2020-06-23] MEDS ORDERED: DOCUSATE SODIUM 100 MG (COLACE) CAP PO ONE (13:54)
[2020-06-23 15:51] VITALS: BP 95/51
[2020-06-23 19:27] VITALS: BP 102/54
--- NOTE | 2020-06-23 19:59 | Discharge Inst-Simple/Standard ---
Discharge Inst-Standard Patient Instructions/Follow Up Plan of Care/Instructions/FU: Please continue to take your medications as written. Please follow up with your primary care doctor to follow up this hospital stay. Activity as Tolerated: Yes Discharge Diet: No Restrictions Return to The Hospital For: Fever, worsening redness or pain, chest pain, shortness of breath, confusion, if you feel you are getting worse. LILIAM COULTER MD Jun 23, 2020 19:59
[2020-06-23 23:06] VITALS: BP 103/55
[2020-06-24 03:57] VITALS: BP 96/57
[2020-06-24] MEDS: D5 1/2 NS 1000 ML IV SOLUTION 1,000 ML IV SCH (05:04)
[2020-06-24] MEDS: HYDROcodone/APAP 10 MG/325 MG (LORTAB) TAB PO PRN ×2 (05:04→09:01)
[2020-06-24 07:47] VITALS: BP 107/66
[2020-06-24] MEDS ORDERED: morphine INJ 4 MG/ML 1 ML (VIAL/SYRINGE) IVP SCH (09:00)
[2020-06-24] MEDS: TRIM/SULFAMETH 160/800 (SEPTRA DS) TAB PO SCH (09:01)
[2020-06-24] MEDS: DOCUSATE SODIUM 100 MG (COLACE) CAP PO SCH (09:43)
[2020-06-24] MEDS: BACITRACIN OINTMENT 28 GM TUBE TOP SCH (09:44)
--- NOTE | 2020-06-24 10:08 | Progress Note - Surgery ---
Subjective Time Seen by a Provider: 09:08 Subjective/Events-last exam Pt seen and examined, no new complaints and states pain is mostly controlled. Review of Systems General: No Chills, No Night Sweats Pulmonary: No Dyspnea, No Cough Cardiovascular: No: Chest Pain, Palpitations Focused Exam Lactate Level 06/21/20 19:31: Lactic Acid Level 1.24 Objective Exam Vital Signs Date Time Temp Pulse Resp B/P (MAP) Pulse Ox O2 Delivery O2 Flow Rate FiO2 06/24/20 07:47 36.6 54 16 107/66 (80) 97 Room Air 06/24/20 03:57 36.9 61 16 96/57 (70) 98 Room Air 06/23/20 23:06 36.6 62 16 103/55 (71) 98 Room Air 06/23/20 20:00 Room Air 06/23/20 19:27 36.5 56 17 102/54 (70) 97 Room Air 06/23/20 15:51 36.6 75 17 95/51 (66) 96 Room Air 06/23/20 11:12 36.4 62 16 94/42 (59) 96 Room Air l I & O 06/24/20 07:00 Intake Total 5490 ml Balance 5490 ml Capillary Refill : Less Than 3 Seconds General Appearance: No Apparent Distress, WD/WN HEENT: Moist Mucous Membranes; No Scleral Icterus (L), No Scleral Icterus (R) Respiratory: Lungs Clear, Normal Breath Sounds, No Accessory Muscle Use, No Respiratory Distress Cardiovascular: Regular Rate, Rhythm, No Murmur Gastrointestinal: other (gracie-rectal area no erythema, minimal serosanguinous drainage) Extremity: Other (handcuffed to bed) Skin: Tattoos/Piercings Results Lab Microbiology 06/22/20 Gram Stain - Final, Resulted 06/22/20 Anaerobic Culture, Resulted Pending 06/22/20 Surgical Culture - Preliminary, Resulted Staphylococcus aureus 06/22/20 Fungal Culture 1, Resulted Pending 06/22/20 MRSA Screen - Final, Complete 06/21/20 Blood Culture - Preliminary, Resulted No growth Assessment/Plan Assessment/Plan Assessment/Plan S/P I&D of Gracie-rectal Abscess Plan change packing today and can send back to correction because nurse will be in on Thursday. PO ABX. Clinical Quality Measures DVT/VTE Risk/Contraindication: Risk Factor Score Per Nursin RFS Level Per Nursing on Admit: 2=Moderate BRII POLK DO Jun 24, 2020 10:08
[2020-06-24] MEDS ORDERED: SULF1TAB35 PO (10:38)
[2020-06-24] MEDS ORDERED: IBUP-1773 PO (10:38)
[2020-06-24] MEDS ORDERED: DCS100C PO (10:38)
--- NOTE | 2020-06-24 11:12 | Discharge Summary ---
Diagnosis/Chief Complaint Date of Admission Jun 21, 2020 at 22:36 Date of Discharge Discharge Date: Jun 24, 2020 Admission Diagnosis Sepsis Perirectal abscess [facility] Discharge Diagnosis (1) Sepsis Status: Acute (2) Sandra-rectal abscess Status: Acute (3) Inmate in correctional facility Discharge Summary Procedures/Consulations Dr Chou- Surgery Discharge Physical Exam Allergies: Coded Allergies: No Known Drug Allergies (Unverified , 10/23/18) Vitals & I&Os Vital Signs Date Time Temp Pulse Resp B/P (MAP) Pulse Ox O2 Delivery O2 Flow Rate FiO2 06/24/20 10:35 Room Air 06/24/20 07:47 36.6 54 16 107/66 (80) 97 06/22/20 12:38 10 06/21/20 23:52 21 General Appearance: No Apparent Distress, WD/WN Respiratory: Lungs Clear, No Respiratory Distress Cardiovascular: Regular Rate, Rhythm, No Murmur Neurologic/Psychiatric: Alert, Oriented x3 Hospital Course Pt was admitted due to sepsis from perirectal abscess. He was taken to the OR for I&D and treated with IV abx. Cultures revealed MRSA. He was transitioned to Bactrim and was discharged home in stable condition to follow up with physician at the correctional facility. Wound care orders per surgery were given. Labs (last 24 hrs) Microbiology 06/22/20 Gram Stain - Final, Resulted 06/22/20 Anaerobic Culture, Resulted Pending 06/22/20 Surgical Culture - Preliminary, Resulted Staphylococcus aureus 06/22/20 Fungal Culture 1, Resulted Pending 06/22/20 MRSA Screen - Final, Complete 06/21/20 Blood Culture - Preliminary, Resulted No growth Patient resulted labs reviewed. Imaging: Reviewed Imaging Report Discussion & Recommendations Discharge Planning: >30 minutes discharge planning Discharge Home Medications: Active Scripts Active Bactrim Ds Tablet (Sulfamethoxazole/Trimethoprim) 1 Each Tablet 1 Each PO BID Ibuprofen 600 Mg Tablet 600 Mg PO Q8H PRN Dok (Docusate Sodium) 100 Mg Capsule 100 Mg PO BID Instructions to patient/family Please see electronic discharge instructions given to patient. Clinical Quality Measures DVT/VTE Risk/Contraindication: Risk Factor Score Per Nursin RFS Level Per Nursing on Admit: 2=Moderate Problem Qualifiers (1) Sepsis: Sepsis type: sepsis due to unspecified organism Sepsis acute organ dysfunction status: without acute organ dysfunction Qualified Codes: A41.9 - Sepsis, unspecified organism LILIAM COULTER MD Jun 24, 2020 11:12
[2020-06-24] MEDS ORDERED: HYDROcodone/APAP 10 MG/325 MG (LORTAB) TAB PO ONE (12:15)
[2020-06-24 12:45] VITALS: BP 107/66
--- NOTE | 2020-06-24 12:45 | NUR ---
SHRUTHI FERNANDEZ demonstrates understanding of discharge instructions and accurately returns instructions upon questioning. Copy of Post-Discharge Instructions given to PT AND ENGLISH DRAWER. SHRUTHI FERNANDEZ is able to manage continuing needs after discharge WITH ASSISTANCE OF POLICE DEPARTMENT. Patients belongings returned to PT. Patient discharged from 413[facility] on 06/24/20 at 1245 . SHRUTHI FERNANDEZ left floor via W/C, accompanied by STAFF AND ENGLISH DRAWER PER POLICE CAR. Addendum: 06/24/20 at 1254 by HALIMA RICHARDS RN Amended: Links added.
--- NOTE | 2020-06-25 21:51 | Physician Query Clarification ---
PQ-Debridement Admission/Discharge Admission Date: Jun 21, 2020 at 22:36 Discharge Date: Jun 24, 2020 at 12:40 Dr. Brii Chou, PHYSICIAN RESPONSE History/Risk factors: 29 y/o Male patient was admitted due to sepsis from perirectal abscess. He was taken to the OR for I&D and treated with IV abx. Operative report/procedure note reflects the following description: Local lidocaine was used to infiltrate over this erythematous area, had already had a small hole with some purulent drainage. We cultured this and sent to pathology. I then used a #11 blade to make a stab incision and opened this area, measured approximately 3.5 to 4 cm long incision, immediately got out about 20 mL of purulent fluid, then broke up any loculations. This did not extend towards the rectum, did extend a little further laterally on the buttock cheek. Debrided with a 4x4. At this point, I then copiously irrigated with normal saline. Hemostasis obtained using Bovie electrocautery and elected to pack with half inch iodoform packing, packed 1/2 of the bottle. Area was cleaned and dried, then placed a dressing QUESTION: Please clarify the depth of the debridement. Please clarify if the debridement was excisional or non-excisional. Please document a response in the Progress Notes or Discharge Summary. 1. Level: Skin Subcutaneous tissue Fascia Muscle Bone 2. Type of debridement: Excisional Non-excisional 3. Other, with explanation of the clinical findings 4. Clinically unable to determine PQ Debridement : Date of debridement: Jun 22, 2020 Level: Subcutaneous Tissue Type: Non-excisional Explanation clinically finding debrided subQ fat roughly with a 4x4 sponge Please remember a lack of response to the above will prompt a phone page by CDI/Coding staff. In responding to this query, please exercise your independent professional judgment. The purpose of this communication is to more accurately reflect the complexity of your patients condition. The fact that a question is asked does not imply that any particular answer is desired or expected. Thank you for your timely response to this clarification. Requestors name: [John Abiel ] Phone # [ ] THIS PHYSICIAN QUERY FORM IS A PERMANENT PART OF THE MEDICAL RECORD ABIEL IVERSON Jun 25, 2020 21:51 BRII CHOU DO Jul 02, 2020 08:09
== END 2020-06-24 12:40 | disposition home or self-care (01) | DRG 854 ==
LOC: EDUNIT# 18:52 → ER FS 18:55 → 4TH 22:36
PROVIDERS: ADMIT Internal Medicine; ATTEND Internal Medicine
PROC: 0JDB0ZZ Extraction of Perineum Subcutaneous Tissue and Fascia, Open Approach (ICD-10-PCS; principal; 2020-06-22 11:23)
DX: A41.9 Sepsis, unspecified organism (principal); K61.1 Rectal abscess
CPT/HCPCS: 36415; 72193; 80053; 83605; 85007; 85027; 86141; 87040; 87070; 87075; 87077; 87081; 87101; 87186; 87205; 87635; 96361; 96365; 96375